=== PATIENT | male | born 1980 | race Caucasian/White ===

== ENCOUNTER 2024-09-23 18:54 | Emergency (ER) | payer SELFPAY ==
[2024-09-23 18:58] VITALS: BP 151/109
[2024-09-23 19:23] LABS: % Basophils 0.5 % (0-2); % Eosinophils 0.7 % (0-6); % Immature Granulocytes 0.2 % (0-0.5); % Lymphocytes 42.5 % (20.5-51.1); % Neutrophils 46.1 % (42.2-75.2); Absolute Lymphocytes 2.5 10^3/uL (1.2-3.4); Absolute Monocytes 0.6 10^3/uL (0.1-0.6); Absolute Neutrophils 2.8 10^3/uL (1.4-6.5); Hematocrit 41.9 % (39.0-52.0); Hemoglobin 15.3 g/dL (13.0-18.0); Mean Corp Hgb Conc. 36.5 g/dL (33.0-37.0); Mean Corpuscular Hgb 35.3 pg (27.0-31.0); Mean Corpuscular Volume 96.5 fL (80.0-94.0); Mean Platelet Volume 8.4 fL (7.4-10.4); Nucleated Red Blood Cells % 0 % (-); Platelet Count 211 10^3/uL (130-400); Red Blood Cell Count 4.34 10^6/uL (4.70-6.10); Red Cell Dist. Width 12.5 % (11.5-14.5)
[2024-09-23 19:32] LABS: ALT (SGPT) 110 U/L (0-50); AST (SGOT) 132 U/L (17-59); Albumin 5.3 g/dl (3.5-5.0); Alkaline Phosphatase 107 U/L (38-126); Blood Urea Nitrogen 3 mg/dl (9-20); Calcium 9.2 mg/dl (8.4-10.2); Carbon Dioxide 21 mmol/L (22-30); Chloride 104 mmol/L (98-107); Glucose 161 mg/dl (70-99); Sodium 140 mmol/L (135-145); Total Bilirubin 1.2 mg/dl (0.2-1.3); Total Protein 8.2 g/dl (6.3-8.2); eGFR > 60.00
[2024-09-23 19:45] LABS: Alcohol 373 mg/dl
[2024-09-23 21:39] VITALS: BMI 25.5
[2024-09-23 21:43] VITALS: BP 144/102
--- NOTE | 2024-09-23 21:45 | EDRN ---
Pt says when he drinks 'I can handle it' but recently he has been 'going overboard and it is too much in my system.' Pt has been having a bad dream about his parents dying (they are in [place] now) and it has scared him and he is scared about a new
job he recently started so he has been drinking a lot. Pt says he didn't drink 'too much' couple sips of mixed cocktail he usually drinks. Pt does not like beer/hard liquor. Pt says he takes care of himself and doesn't drink. Pt recently took
time off and says he was taking good care of himself but he got nervous when he hadn't heard from his new job and he is concerned about his background check. Pt started drinking excessively 6 days ago, nolvia says it stated Saturday. No n/v. Pt
feels shaky. Nolvia concerned because pt did not sleep last night or today.
--- NOTE | 2024-09-23 21:51 | EDRN ---
Last drink around 183
[2024-09-23 22:00] VITALS: BP 130/102
--- NOTE | 2024-09-23 22:03 | EDRN ---
Called pharmacy for IVF
--- NOTE | 2024-09-23 22:05 | ED.GENMED ---
History of Present Illness
General
Chief Complaint: Alcohol Problem
Source: patient and significant other
Exam Limitations: none
Time Seen by Provider: 09/23/24 21:28
Nursing documentation reviewed up to this point in time: agreed with
History of Present Illness
History of Present Illness:
43-year-old male binge drinker been in outpatient rehab inpatient rehab before anxiety depression not on meds, unemployed 1 prior DUI accompanied by significant other's been drinking a lot lately comes in trying to get some help, states his medical
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
getting a job
Past History
Past History
ED Past Medical History: Psychiatric (Anxiety, depression, alcoholism)
ED Past Surgical History: Appendectomy
Social History
Tobacco: Non-smoker (Occasional smoker)
Alcohol: Chronic alcoholic
Drug: Marijuana
Personal: Single
Living: alone
Employment: Not employed
Family History
Family History: Other
Review of Systems
Review of Systems
All Other Systems: Not applicable
Constitutional: Reports sleep disturbance
Respiratory: Reports no symptoms
ABD/GI: Reports no symptoms
Psychiatric: Reports depression and anxiety; Denies suicidal or hallucinations
Phy Exam
Physical Exam
Physical Exam:
Physical Exam
General: Disheveled male
Neck: Dry lips
Heart: s1/s2 regular rate and rhythm, no murmur. equal radial pulses.
Lungs: no acute respiratory distress. clear bilaterally
Abdomen: Nontender
Neuro: alert and oriented. no focal neurological deficits no tremor
Skin: no rash
Psychiatric: Disheveled anxious but quite
Extremities: no edema.
Scores
Withdrawal Assessment of Alcohol
Withdrawal Assessment Completed?: Not applicable
Course
Orders/Labs/Results
Orders:
Orders
09/23/24 19:05
EKG [Electrocardiogram (*1)] Urgent
Reason for Study: Tachycardia
EKG- Treatment ONCE
09/23/24 19:11
Alcohol Urgent
Complete Blood Count/With Diff Urgent
Comprehensive Metabolic Panel Urgent
09/23/24 22:01
Warm Handoff Consult ONCE
Patient agreeable to Warm Hand off: Yes
Call made to [phone]: Left Message for followup
09/23/24 23:00
0.9% Sodium Chloride 1000 ml [Nss] 1,000 ml Mvi, Adult [Multivitamin] 10 ml Thiamine Injection 100 mg IV 500 mls/hr
Abnormal Lab Results
09/23/24
19:11
RBC 4.34 L 10^6/uL
(4.70-6.10)
MCV 96.5 H fL
(80.0-94.0)
MCH 35.3 H pg
(27.0-31.0)
Monocytes % 10.0 H %
(1.7-9.3)
Carbon Dioxide 21 L mmol/L
(22-30)
BUN 3 L mg/dl
(9-20)
Creatinine 0.5 L mg/dL
(0.7-1.3)
Glucose 161 H mg/dl
(70-99)
AST 132 H U/L
(17-59)
ALT 110 H U/L
(0-50)
Albumin 5.3 H g/dl
(3.5-5.0)
09/23/24 19:11
09/23/24 19:11
Vital Signs
Initial and Last Documented VS:
Initial Vital Signs
Temp Pulse Resp BP Pulse Ox
98.3 F 127 20 151/109 99
09/23/24 18:58 09/23/24 18:58 09/23/24 18:58 09/23/24 18:58 09/23/24 18:58
Last Documented Vital Signs
Temp Pulse Resp BP Pulse Ox
98.3 F 111 11 130/102 97
09/23/24 18:58 09/23/24 22:00 09/23/24 22:00 09/23/24 22:00 09/23/24 22:00
MDM/Problems Addressed
Differential Diagnosis Includes:
Alcohol intoxication alcohol use disorder anxiety depression no suicidal ideation no signs of alcohol withdrawal
MDM/Problems Addressed:
Alcohol intoxication
Chronic conditions affecting care: Psychiatric illness
Acute Exacerbation and/or Progression of Chronic Illness: Psychiatric illness
*Pulse Oximetry
Patient hypoxic: no
*Critical Care Note
Total Time (30-74mins, 75-104mins- exclusive of procedures): Not Applicable
Update Note
Update Note:
Update, patient intoxicated disheveled not suicidal, will hydrate electrolytes are noted patient is amenable to talk to warm handoff [facility]
Update patient would like to go home, he is given resources by [facility] sees will follow-up as an outpatient
ED Attending Note
-
Portions of this chart may have been created with voice recognition software.� Occasional wrong word or��sound alike� substitutions may have occurred due to the inherent limitations of voice recognition software.
Discharge Plan
Departure
Patient Disposition: Home (Routine Discharge)
Date of Disposition: 09/23/24
Time of Disposition: 23:01
Patient with high blood pressure during this ER visit?: No
Condition: Good
Discharge Problem:
Chronic alcoholism
Instructions: Alcohol Use Disorder (DC)
Prescriptions:
No Action
Medical Marijuana
inhalation PRN PRN (Reason: n/v/depressions/sleep/anxiety)
Referrals:
Urbano Jasso DO [Family Provider] - Next open appointment
Activity Restrictions/Additional Instructions:
Follow-up at [facility], [place]
Interventions
Interventions:
*Risk Screen - Suicide Last Done: 09/23/24 18:58
*General Assessment Last Done: 09/23/24 18:58
*Neglect/Abuse Screening Last Done: 09/23/24 18:58
ED- Fall Risk Assessment Last Done: 09/23/24 22:18
*ED COVID-19 Vaccine History Last Done: 09/23/24 21:52
ED- Neurological Assessment Last Done: 09/23/24 21:52
ED-Psychological Assessment Last Done: 09/23/24 21:52
Discharge Date and Time
Print Language: GRENADIAN
[2024-09-23] MEDS: MULTIVITAMIN 166 ML IV (22:43)
[2024-09-23] MEDS: MULTIVITAMIN 166 MG IV (22:43)
--- NOTE | 2024-09-23 22:47 | EDRN ---
Pt talking with [employer] rep - pt sitting on stretcher stating he knows people want him to stay but he thinks he is going to leave because 'I can do this on my own.' Encouraged pt to allow start of IVF while he is talking with staff to get some IVF
with vitamins. Pt continues talking with ALEJANDRA, alejandro at bedside.
--- NOTE | 2024-09-23 22:57 | EDRN ---
Pt sitting on side of stretcher, [employer] rep outside room. Pt says 'I want to go home and lay in my comfy bed.' Dr Marshall informed and will speak with pt.
[2024-09-23 23:00] VITALS: BP 138/116
== END 2024-09-23 23:18 | disposition home or self-care (01) ==
LOC: EMR 18:54
PROVIDERS: EMERGENCY PHYSICIAN Emergency Medicine; FAMILY PHYSICIAN Internal Medicine
DX: F10.229 Alcohol dependence with intoxication, unspecified (principal); F41.9 Anxiety disorder, unspecified; F32.A Depression, unspecified; Z56.0 Unemployment, unspecified
CPT/HCPCS: 99284; 96365; 80053; 82077; 85025; 93005